=== PATIENT | female | born 1990 | race American Indian/Alaskan Native ===

== ENCOUNTER 2018-05-15 08:00 | Inpatient (IN) | payer MEDICAID ==
[2018-05-15] MEDS ORDERED: Lactated Ringer's 1,000 ML IV ONE (09:02)
[2018-05-15] MEDS ORDERED: Oxytocin 30 UNITS in Sodium Chloride 0.9% 500 ML IV ONE ×2 (09:05→12:02)
[2018-05-15] MEDS ORDERED: OXYTOCIN/0.9 % NS 20 UNIT/1,000 ML BAG IV SCH ×2 (09:15→17:07)
--- NOTE | 2018-05-15 09:48 | OBADHP ---
Datetime: 05/15/2018 08:15 Admit Comment, IP Provider: 27 y/o F at 39.4 weeks GA, ROSA 05/19/18 by 15-week US, is broug ht by EMS due to painful uterine CTX's since last night. Pain is in lower abdomen and pelvis, began a round 5:30pm yesterday, aggravating progressively and now has become severe. No VB or LOF. FM present . Pt deniesheadache, dizziness, visual disturbances, cough, chest pain, SOB, nausea, vomiting, change in bowel movement or rash. All systems reviewed and negative except as above. NKDA Med's: [facility]: [facility]. OB Labs: HIV neg, RPR neg, GBS not found on records. HBsAg neg, blood group: A pos, Antibody neg. GC/Chlamydia neg. OB Hx: . 2x at FT. 1 spontaneous . PMHx: Mild intermittent asthma PSHx: denied FHx: NC SHx: NO tobacco, alcohol or rec drugs. A/P 27 y/o F with IUP at 39.4 weeks GA, in active labor -Admit to L and D -Initiate labor protocol Case disuccsed with OB-hospitalist english composition instructor, Dr Rojas. GTolentino PGY-1. Addendum by Dr. Rojas: I have evaluated the patient independently and I agree with the above Pelvic Type - PN: Adequate Extremities - PN: Normal Abdomen - PN: Normal Breast - PN: Normal Lungs - PN: Normal Heart - PN: Normal Thyroid - PN: Normal Neurologic - PN: Normal HEENT - PN: Normal General - PN: Normal Presentation-Admit: Vertex FHR - Baseline A Provider: 130 IP Hx Assessment: The History has been Reviewed and is Current Vital Signs Provider: Reviewed IP Chief Complaint: Uterine contractions NICHD Variability Prov Fetus A: Moderate 6-25bpm NICHD Accel Fetus A IP Provider: [id number] FHR Category Provider Fetus A: Category I Dilatation, Provider: 4-5 Effacement, Provider: 50 Station, Provider: -2 Genitourinary Exam: Normal IP Adm Impression: Term, intrauterine IP Admit Plan: Admit to unit; Initiate labor protocol
[2018-05-15 09:49] LABS: BASO % 0.6 % (0.0-2.0); EOS % 0.6 % (0.0-4.0); HEMOGLOBIN 11.2 g/dL (12.0-16.0); LYMPH # 1.4 K/uL (1.0-4.3); LYMPH % 25.9 % (20.0-40.0); MEAN CELL VOLUME 80.7 fl (81.0-99.0); MEAN CORPUSCULAR HEMOGLOBIN 26.8 pg (27.0-31.0); MEAN CORPUSCULAR HGB CONC 33.2 g/dL (33.0-37.0); MONO # 0.3 K/uL (0.0-0.8); MONO % 6.1 % (0.0-10.0); NEUT # 3.6 K/uL (1.8-7.0); NEUT % 66.8 % (50.0-75.0); NRBC % 0.1 % (0.0-0.0); RBC 4.17 Mil/uL (3.80-5.20); RED CELL DISTRIBUTION WIDTH 13.8 % (11.5-14.5); WHITE BLOOD COUNT 5.4 K/uL (4.8-10.8)
[2018-05-15] MEDS ORDERED: Fentanyl/Bupivacaine HCl 250 ML EPI ONE (09:58)
[2018-05-15] MEDS ORDERED: Lactated Ringer's 1,000 ML IV SCH (10:15)
--- NOTE | 2018-05-15 11:23 | OBPN ---
Datetime: 05/15/2018 11:18 IP Progress Impression: Normal progression of labor IP Informed Consent Obtain: Vaginal Delivery IP Procedures: Sterile Vag Exam IP Progress Plan: Continue present management Membranes, Provider: Ruptured Contraction Comments Provider: q 4 mins FHR - Baseline A Provider: 125 IP Progress Note Comment: Patient feeling comfortable s/p epidural. VE = 9/100/0, [id number] mod loren, + accels, early decels TOCO = ctxning q 4 mins A/P 1. Pt AROM, clear, 9 cm. Progressing well 2. Will re-evaluate when feeling increased pressure 3. CEFM and TOCO Vital Signs Provider: Reviewed; Within Normal Limits NICHD Accel Fetus A IP Provider: 15X15 NICHD Variability Prov Fetus A: Moderate 6-25bpm Dilatation, Provider: 9 Effacement, Provider: 100 Station, Provider: 0 NICHD Decel Fetus A IP Provider: Early Datetime: 05/15/2018 08:15 Presentation-Admit: Vertex FHR Category Provider Fetus A: Category I
[2018-05-15 12:18] VITALS: O2SAT 99
[2018-05-15] MEDS ORDERED: Oxycodone/Acetaminophen 5/325 mg Tab PO PRN ×2 (13:13→17:07)
--- NOTE | 2018-05-15 13:21 | OBDS ---
MATERNAL INFORMATION Provider Comments: of live male over intact perineum, 8lbs 5oz, 9/9, BRIAN, nuchal cord x 1 loose, followed by shoulders and rest of infant atraumatically, mouth and nose suctioned, cord clam ped and cut, infant placed on mother's chest, cord blood obtained, placenta delivered spontaneously, EBL=50ml, fundus firm, no lacerations to repair LABOR SUMMARY EDC: 05/18/2018 00:00 No. Babies in Womb: 1 LABOR INFORMATION Onset of Labor: 05/15/2018 06:00
[2018-05-16 07:22] LABS: BASO % 0.2 % (0.0-2.0); EOS # 0.1 K/uL (0.0-0.7); HEMOGLOBIN 10.1 g/dL (12.0-16.0); MEAN CELL VOLUME 80.6 fl (81.0-99.0); MEAN CORPUSCULAR HEMOGLOBIN 26.6 pg (27.0-31.0); MEAN PLATELET VOLUME 7.6 fl (7.2-11.7); MONO # 0.6 K/uL (0.0-0.8); MONO % 7.8 % (0.0-10.0); NEUT # 4.8 K/uL (1.8-7.0); RBC 3.81 Mil/uL (3.80-5.20); RED CELL DISTRIBUTION WIDTH 13.8 % (11.5-14.5); WHITE BLOOD COUNT 7.4 K/uL (4.8-10.8)
--- NOTE | 2018-05-16 16:13 | OBPPN ---
Datetime: 05/16/2018 07:27 PP Pain Prov: Within normal limits PP Nausea Prov: Denies PP Flatus Prov: Yes PP BM Prov: No PP Breasts Prov: Normal PP Heart Prov: Normal PP Lungs Prov: Normal PP Abdomen/Uterus Prov: Normal PP Lochia Prov: Normal PP CVA Tenderness Prov: Normal PP Extremities Prov: Normal PP C/S Incision Prov: Not Applicable PP Progress Prov: Normal PP Impression Prov: Normal progression PP Plan Prov: Continue present management PP Progress Note Prov: S: Pt is a 27 yo 39.4 wk s/p on 05/15/18 PPD 1. Seen and examined at bedside this am. Patient denies any significant overnight events. Reports mild pelvic pain which is controlled with pain medicine. OOB/Ambulating well without dizziness. Breast feeding without diff iculty. Tolerating regular diet. Lochia is similar to menses. Voiding freely with no blood noted. Paolo mix has not had a bowel movement, but is passing gas per rectum. Denies fever/chills, diarrhea, stephanie sea/vomiting, CP/SOB , Lightheadedness. O: BP:108/68, HR:86, T98.1F CBC-11.2/33.7, blood type: A+, rubella: Non- Immune- ordered MMR vaccine for 05/17/18 PHYSICAL EXAM: GEN: AAOx3, Resting comfortably in bed, NAD HEENT: NCAT, White sclera, pink conjunctiva, oral mucosa moist. LUNGS: CTA B/L, no wheezing, rhonchi, or rales, B/L chest rise CVS: RRR, S1, S2, No murmurs, rubs, gallops ABD: ND, +BS, firm fundus @ umbilical level. Soft, appropriate TTP EXT: no edema, negative Rosendo's sign, calves non tender NEURO/Psych: no gross focal deficit, preserved affect and mood. A/P 27y/o post , had a on 05/15/18 @ 13:12. Pt afebrile, tolerating pain with medica tion, tolerating regular diet, adequate urine output. Encouraged breast feeding and ambulation Ibuprofen 600mg mild pain PNV 1 tab po daily Post op contraception - unsure F/U 4-6 weeks for post- visit at [facility] Lizbeth Vargas M.D. PGY-1 Patient was seen and case discussed with Dr. Rojas [facility] addendum: pt seen _ examined by me. agree w/ above assessment and plan. IP PP Procedures: None Vital Signs Provider PP: Reviewed; Within Normal Limits
--- NOTE | 2018-05-17 07:23 | OBPPN ---
Datetime: 05/17/2018 07:18 PP Pain Prov: Within normal limits PP Abdomen/Uterus Prov: Normal PP Lochia Prov: Normal PP Progress Prov: Normal PP Impression Prov: Normal progression PP Plan Prov: Discharge PP Progress Note Prov: PPD 2 s/p , doing well, breast feeding Discharge home Vital Signs Provider PP: Reviewed; Within Normal Limits
[2018-05-17] MEDS ORDERED: Measles, Mumps, and Rubella 0.5 ML VIAL SC ONE (09:00)
[2018-05-17 18:28] VITALS: BP 106/66; PULSE 77; RESP 20; TEMP 97.9
== END 2018-05-17 13:30 | disposition home or self-care (01) | DRG 373 ==
LOC: H.EROB2 08:00 → H.L&D 09:05 → H.OB/GYN 17:04
PROVIDERS: ADMIT Obstetrics & Gynecology; ATTEND Obstetrics & Gynecology
PROC: 10E0XZZ Delivery of Products of Conception, External Approach (ICD-10-PCS; principal; 2018-05-15)
PROC: 10907ZC Drainage of Amniotic Fluid, Therapeutic from Products of Conception, Via Natural or Artificial Opening (ICD-10-PCS; 2018-05-15)
PROC: 4A1HXCZ Monitoring of Products of Conception, Cardiac Rate, External Approach (ICD-10-PCS; 2018-05-15)
DX: O69.81X0 Labor and delivery complicated by cord around neck, without compression, not applicable or unspecified (principal); O99.513 Diseases of the respiratory system complicating pregnancy, third trimester; J45.20 Mild intermittent asthma, uncomplicated; Z3A.39 39 weeks gestation of pregnancy; Z37.0 Single live birth